=== PATIENT | female | born 1975 | race Caucasian/White ===

== ENCOUNTER → 2017-08-09 | Outpatient (CLI) | payer BC | END | disposition home or self-care (01) | LOC: MMGSC 11:08 | PROVIDERS: ATTEND Family Medicine | DX: L03.90 Cellulitis, unspecified (principal) | CPT/HCPCS: 87070; 87205 ==

== ENCOUNTER → 2018-03-02 | Outpatient (CLI) | payer OTHER ==
--- NOTE | 2018-03-06 08:47 | MM ---
Reason for exam: screening (asymptomatic). Last mammogram was performed 3 years and 1 month ago. History: Patient had first child at age 35. Family history of breast cancer in mother at age 45 and breast cancer in maternal grandmother at age 73. Reductions of both breasts, 2008. Taking hormonal contraceptives for 1 year 6 months. Physical Findings: A clinical breast exam by your physician is recommended on an annual basis and results should be correlated with mammographic findings. MG 3D Screening Mammo W/Cad Bilateral CC and MLO view(s) were taken. Prior study comparison: February 03, 2015, bilateral MG screening mammo w CAD. No significant changes when compared with prior studies. ASSESSMENT: Benign, BI-RAD 2 RECOMMENDATION: Routine screening mammogram of both breasts in 1 year.
== END | disposition home or self-care (01) ==
LOC: RADMAMWWP 12:38
PROVIDERS: ATTEND Family Medicine
DX: Z12.31 Encounter for screening mammogram for malignant neoplasm of breast (principal)
CPT/HCPCS: 77063; 77067

== ENCOUNTER → 2019-06-06 | Outpatient (CLI) | payer OTHER ==
--- NOTE | 2019-06-07 14:27 | MM ---
Reason for exam: screening (asymptomatic). Last mammogram was performed 1 year and 3 months ago. History: Patient had first child at age 35. Family history of breast cancer in mother at age 45 and breast cancer in maternal grandmother at age 73. Reductions of both breasts, 2008. Taking hormonal contraceptives for 1 year 6 months. Physical Findings: A clinical breast exam by your physician is recommended on an annual basis and results should be correlated with mammographic findings. MG 3D Screening Mammo W/Cad Bilateral CC and MLO view(s) were taken. Prior study comparison: March 02, 2018, bilateral MG 3d screening mammo w/cad. February 03, 2015, bilateral MG screening mammo w CAD. The breast tissue is heterogeneously dense. This may lower the sensitivity of mammography. Benign appearing bilateral calcifications. No suspicious abnormality. No significant changes when compared with prior studies. ASSESSMENT: Benign, BI-RAD 2 RECOMMENDATION: Routine screening mammogram of both breasts in 1 year.
== END | disposition home or self-care (01) ==
LOC: RADMAMWWP 10:26
PROVIDERS: ATTEND Pediatrics
DX: Z12.31 Encounter for screening mammogram for malignant neoplasm of breast (principal)
CPT/HCPCS: 77063; 77067

== ENCOUNTER → 2020-02-19 | Outpatient (CLI) | payer OTHER ==
--- NOTE | 2020-02-19 20:52 | CONS ---
CONSULTATION REASON FOR CONSULTATION: CHIEF COMPLAINT: "Waking up in the middle of the night and eating." This is a pleasant 44-year-old female patient with history of anxiety and depression in addition to history of endometriosis, asthma and eczema. The patient is coming to see me in the sleep center due to concerns about some unusual behavior that is occurring at night time. Apparently since the age of 12 the patient wakes up in the middle of the night on several occasions to get up and eat. Note that she is conscious during these episodes. She is fully alert and aware that she is waking up, and these are not involuntary events. As stated, the patient wakes up in the middle of the night and she heads to the kitchen, where she eats high-calorie starchy foods such as cookies. Following that, she is able to go back to bed and generate sleep without any major difficulties. As stated, she would like to eat either sweets or cookies. Sometimes she wakes up with nausea. At other times she has a guilt feeling where she has to get up and do some eating activity. Note that the patient has not gained weight. In fact, there has been significant weight loss; the patient has lost around 30 to 40 pounds over these past 5 years, as she has been exercising regularly and she has been leading a healthy lifestyle during the day. As far as the frequency of these episodes, these vary, and they are usually associated with stressful life events and family-related stress. Note that the patient is and she has 3 children. As stated, there is no recent weight gain. No active signs of anxiety or depression at this point in time. She has no history of diabetes. No history of any metabolic disorder. No history of any liver disorder. No history of any kidney disorder. No consumption of peculiar forms or any combination of food or inedible or toxic substances. No sleep-related injury or any other dangerous behavior performed while in pursuit of food or activities such as cooking food. The patient eats regularly during the day. She has no morning anorexia. No other neurologic disorders. No history of any mental disorder other than some depression and some limited anxiety. She used to sleepwalk as a child, and she has recovered from that. No history of any alcoholism. No history of substance abuse. No history of any head trauma. No chronic medication intake. PAST MEDICAL HISTORY: depression, anxiety, endometriosis, asthma/eczema and remote history of sleepwalking. PAST SURGICAL HISTORY: Past surgical history includes x2 and bilateral breast reduction. DRUG ALLERGIES: NOT KNOWN. OUTPATIENT MEDICATION LIST: Outpatient medication list includes Symbicort 160/4.5 two puffs twice a day. SOCIAL HISTORY: The patient is a nonsmoker. No history of alcoholism. No history of IV drugs. FAMILY HISTORY: Negative for any sleep disorders. REVIEW OF SYSTEMS: Fourteen-point review of system was done and positive findings are all mentioned above in the history of present illness. As mentioned, the patient wakes up in the middle of the night and she will eat and go back to sleep. There is positive history of weight loss. She sleeps on her side. Occasional snoring. No reported witnessed apneas. No report restlessness in the lower extremities. No creepy crawly sensation in her legs and constant urge of movement. No seizure activity. PHYSICAL EXAMINATION: VITAL SIGNS: BP is 113/81, pulse 101, respirations 16, temperature 97.8, saturation 98% on room air. Height is 5 feet 2 inches, weight 160, BMI 28.7. Neck size is 14 inches. [place] score is 14. GENERAL APPEARANCE: Calm, comfortable. HEAD: Atraumatic, normocephalic. NECK: Supple. No JVD. No goiter or neck masses. LUNGS: Clear to auscultation. HEART: Heart sounds are regular rate and rhythm. Normal S1, S2. No S3, S4. No murmurs. ABDOMEN: Soft, nontender. No organomegaly. EXTREMITIES: There is no cyanosis or clubbing. 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 The patient is reporting behavior that is occurring during wakefulness and usually resulting in sleep-onset insomnia due to hunger. She consumes high-calorie food and she is able to generate sleep. The frequency of these episodes varies according to stress. Fortunately there was no significant weight gain and there is no psychopathology associated with it such as significant anxiety or depression. I think that the patient has a nocturnal eating disorder and she does not have any involuntary eating and she is not involved in any form of sleep-related injuries or dangerous behavior while in pursuit of food or while cooking food. She has no morning anorexia and she does not have any recurrent binge eating of high-calorie foods. Furthermore, no history of neurologic disorder, mental disorder, medication use or substance use, and no other symptoms to suggest binge eating disorder, bulimia, dissociative disorder in this patient. PLAN: 1. Discussed the findings with the patient. 2. Obviously we will do a polysomnogram to rule out any other pathology associated with this nocturnal eating disorder. 3. As far as treatment, treatment of nocturnal eating disorder has been primarily anecdotal. There are studies or trials published on the use of Zoloft, with some improvement in symptoms. Other trials have utilized topiramate. Non-pharmacologic options of treatment are somewhat limited, and they were described mainly in the form of morning light therapy. Stress reduction relaxation techniques have been reported also to be quite helpful. I discussed this with the patient. She understands. Will do a polysomnogram. Rule out other comorbidities. If negative, will proceed with non-pharmacological option at this point. She has no interest in pharmacotherapy to treat her nocturnal eating disorder. MMODL / HIPOLITON: [id number] /
== END | disposition home or self-care (01) ==
LOC: SLEEP 13:20
PROVIDERS: ATTEND Internal Medicine Critical Care Medicine
DX: G47.00 Insomnia, unspecified (principal); F50.9 Eating disorder, unspecified
CPT/HCPCS: 99211

== ENCOUNTER → 2020-10-02 | Outpatient (CLI) | payer BC ==
--- NOTE | 2020-10-03 14:57 | MM ---
Reason for exam: screening (asymptomatic). Last mammogram was performed 1 year and 4 months ago. History: Patient had first child at age 35. Family history of breast cancer in mother at age 45 and breast cancer in maternal grandmother at age 73. Reductions of both breasts, 2008. Taking hormonal contraceptives for 1 year 6 months. Physical Findings: A clinical breast exam by your physician is recommended on an annual basis and results should be correlated with mammographic findings. MG 3D Screening Mammo W/Cad Bilateral CC and MLO view(s) were taken. Prior study comparison: June 06, 2019, bilateral MG 3d screening mammo w/cad. March 02, 2018, bilateral MG 3d screening mammo w/cad. There are scattered fibroglandular densities. No significant changes when compared with prior studies. ASSESSMENT: Benign, BI-RAD 2 RECOMMENDATION: Routine screening mammogram of both breasts in 1 year.
== END | disposition home or self-care (01) ==
LOC: RADMAMWWP 11:05
PROVIDERS: ATTEND Pediatrics
DX: Z12.31 Encounter for screening mammogram for malignant neoplasm of breast (principal); Z80.3 Family history of malignant neoplasm of breast
CPT/HCPCS: 77063; 77067

== ENCOUNTER → 2021-10-12 | Outpatient (CLI) | payer BC ==
--- NOTE | 2021-10-14 08:47 | MM ---
Reason for Exam: Screening (asymptomatic). Last screening mammogram was performed 12 month(s) ago. Patient History: Menarche at age 14. First Full-Term at age 35. Late child-bearing (after 30). Hormonal Contraceptives for 1 year, 6 months. 10/05/2007, Bilateral Reduction. Maternal grandmother had breast cancer, age 73. Mother had breast cancer, age 45. Last menstrual period: 10/05/2021 Risk Values: Fe 5 year model risk: 1.6%. NCI Lifetime model risk: 18.6%. Film Views: Bilateral CC views were taken. Bilateral MLO views were taken. Prior Study Comparison: 03/02/2018 Bilateral Screening Mammogram, [facility]. 06/06/2019 Bilateral Screening Mammogram, [facility]. 10/02/2020 Bilateral Screening Mammogram, [facility]. Tissue Density: There are scattered fibroglandular densities. Findings: Analyzed By CAD. There is no suspicious group of microcalcifications or new suspicious mass in either breast. Spherical calcifications are within the right breast and are stable. There is stable focal asymmetry within the outer left breast. Overall Assessment: Benign, BI-RAD 2 Management: Screening Mammogram of both breasts in 1 year. A clinical breast exam by your physician is recommended on an annual basis and results should be correlated with mammographic findings. Electronically signed and approved by: Amari Santos D.O. Radiologis
== END | disposition home or self-care (01) ==
LOC: RADMAMWWP 13:21
PROVIDERS: ATTEND Pediatrics
DX: Z12.31 Encounter for screening mammogram for malignant neoplasm of breast (principal); Z80.3 Family history of malignant neoplasm of breast
CPT/HCPCS: 77063; 77067

== ENCOUNTER → 2023-04-13 | Outpatient (CLI) | payer OTHER ==
--- NOTE | 2023-04-18 01:08 | MM ---
Reason for Exam: Screening (asymptomatic). Last mammogram was performed 1 year(s) and 6 month(s) ago. Patient History: Menarche at age 14. First Full-Term at age 35. Late child-bearing (after 30). Perimenopausal. Hormonal Contraceptives for 1 year, 6 months. 10/05/2007, Bilateral Reduction. Maternal grandmother had breast cancer, age 73. Mother had breast cancer, age 45. Risk Values: Fe 5 year model risk: 1.7%. NCI Lifetime model risk: 18.5%. Prior Study Comparison: 06/06/2019 Bilateral Screening Mammogram, [facility]. 10/02/2020 Bilateral Screening Mammogram, [facility]. 10/12/2021 Bilateral MG 3D screening mammo w/cad, [facility]. Tissue Density: There are scattered fibroglandular densities. Findings: Analyzed By CAD. Unchanged global asymmetry on the left. Benign oil cyst calcifications on the right. There is no suspicious group of microcalcifications or new suspicious mass in either breast. Overall Assessment: Benign, BI-RAD 2 Management: Screening Mammogram of both breasts in 1 year. . Patient should continue monthly self-breast exams. A clinical breast exam by your physician is recommended on an annual basis. This exam should not preclude additional follow-up of suspicious palpable abnormalities. Note on Fe scores and lifetime risk: 1. A Fe score greater than 3% is considered moderate risk. If this is the case, consider specialist referral to assess eligibility for a risk reducing agent. 2. If overall lifetime risk for the development of breast cancer is 20% or higher, the patient may qualify for future screening with alternating mammogram and breast MRI. Electronically signed and approved by: Salima Espitia M.D. Radiologist
== END | disposition home or self-care (01) ==
LOC: RADMAMWWP 09:40
PROVIDERS: ATTEND Pediatrics
DX: Z12.31 Encounter for screening mammogram for malignant neoplasm of breast (principal); Z80.3 Family history of malignant neoplasm of breast
CPT/HCPCS: 77063; 77067

== ENCOUNTER → 2024-08-08 | Outpatient (CLI) | payer BC ==
--- NOTE | 2024-08-08 10:18 | MM ---
Reason for Exam: Screening (asymptomatic). Last mammogram was performed 1 year(s) and 4 month(s) ago. Patient History: Menarche at age 14. First Full-Term at age 35. Late child-bearing (after 30). Perimenopausal. Hormonal Contraceptives for 1 year, 6 months. 10/05/2007, Bilateral Reduction. Maternal grandmother had breast cancer, age 73. Mother had breast cancer, age 45. Risk Values: Fe 5 year model risk: 1.8%. NCI Lifetime model risk: 18.0%. Prior Study Comparison: 10/02/2020 Bilateral Screening Mammogram, [facility]. 10/12/2021 Bilateral MG 3D screening mammo w/cad, [facility]. 04/13/2023 Bilateral MG 3D screening mammo w/cad, [facility]. Tissue Density: There are scattered areas of fibroglandular density. Findings: Analyzed By CAD. Large regional benign appearing dystrophic calcifications in the right breast redemonstrated. Stable asymmetric prominent tissue posteriorly in the left breast is noted. Benign-appearing left axillary lymph nodes are redemonstrated. There is no suspicious group of microcalcifications or new suspicious mass in either breast. Overall Assessment: Benign, BI-RAD 2 Management: Screening Mammogram of both breasts in 1 year. . Patient should continue monthly self-breast exams. A clinical breast exam by your physician is recommended on an annual basis. This exam should not preclude additional follow-up of suspicious palpable abnormalities. Note on Fe scores and lifetime risk: 1. A Fe score greater than 3% is considered moderate risk. If this is the case, consider specialist referral to assess eligibility for a risk reducing agent. 2. If overall lifetime risk for the development of breast cancer is 20% or higher, the patient may qualify for future screening with alternating mammogram and breast MRI. [facility], , 08/08/2024 10:15 AM. Electronically signed and approved by: Arik Richmond M.D.
== END | disposition home or self-care (01) ==
LOC: RADMAMWWP 09:00
PROVIDERS: ATTEND Pediatrics
DX: Z12.31 Encounter for screening mammogram for malignant neoplasm of breast (principal); R92.323 Mammographic fibroglandular density, bilateral breasts; R93.89 Abnormal findings on diagnostic imaging of other specified body structures; Z80.3 Family history of malignant neoplasm of breast; Z92.0 Personal history of contraception
CPT/HCPCS: 77063; 77067

== ENCOUNTER → 2024-08-08 | Outpatient (CLI) | payer BC ==
--- NOTE | 2024-08-08 14:56 | US ---
EXAMINATION TYPE: US pelvis complete transvag DATE OF EXAM: 08/08/2024 COMPARISON: 03/30/2024. CLINICAL INDICATION: Female, 49 years old with history of R93.89 ABNORMAL FINDINGS ON DX IMAGING OF O TH BODY; . Follow up on right ovarian cyst TECHNIQUE: Transvaginal (TV) and Transabdominal (TA) . Transabdominal grayscale sonographic images of the pelvis were acquired. Transvaginal sonographic im ages were medically necessary to better assess the following anatomy: ovaries Doppler imaging: Not performed. FINDINGS: Date of LMP: 07/19/24 EXAM MEASUREMENTS: Uterus: 10.8 x 6.8 x 6.0 cm Endometrial Stripe: 0.71 cm Right Ovary: 5.6 x 4.5 x 4.3 cm Left Ovary: 3.2 x 2.6 x 2.9 cm Limited due to body habitus 1. Uterus: Anteverted complex area seen in cervix measuring 1.8 x1.4cm 2. Endometrium: not well visualized 3. Right Ovary: complex area seen measuring 6.2 x 5.1 x4.0cm with what is thought to be either 2 cys ts next to each other or a cyst with septation, septation measuring up to 5 mm. 4. Left Ovary: appears wnl, slightly limited 5. Bilateral Adnexa: wnl 6. Posterior cul-de-sac: wnl IMPRESSION: Complex right ovarian cystic lesion, may be larger compared to 03/30/2024 ultrasound. Differential con siderations include ovarian cystic neoplasm versus hemorrhagic cyst cyst versus adjacent simple cysts . [facility], , 08/08/2024 2:54 PM
== END | disposition home or self-care (01) ==
LOC: RADUSWWP 08:59
PROVIDERS: ATTEND Pediatrics
DX: N83.8 Other noninflammatory disorders of ovary, fallopian tube and broad ligament (principal); R93.89 Abnormal findings on diagnostic imaging of other specified body structures
CPT/HCPCS: 76830; 76856